=== PATIENT | male | born 1995 | race Caucasian/White ===

== ENCOUNTER 2020-08-03 14:37 | Outpatient (REF) | payer OTHER, SELFPAY | END 2020-08-03 14:38 | disposition home or self-care (01) | LOC: HO.LAB 14:37 | PROVIDERS: Visit Provider Internal Medicine | DX: Z20.828 Contact with and (suspected) exposure to other viral communicable diseases (principal) | CPT/HCPCS: C9803; U0003 ==

== ENCOUNTER 2020-09-02 15:52 | Outpatient (REF) | payer BC, SELFPAY | END 2020-09-02 15:53 | disposition home or self-care (01) | LOC: HO.LAB 15:52 | PROVIDERS: Visit Provider Internal Medicine | DX: Z20.822 Contact with and (suspected) exposure to COVID-19 (principal) | CPT/HCPCS: 36415; C9803; U0003 ==

== ENCOUNTER 2020-09-09 16:34 | Outpatient (REF) | payer BC, SELFPAY | END 2020-09-09 16:35 | disposition home or self-care (01) | LOC: HO.LAB 16:34 | PROVIDERS: Visit Provider Internal Medicine | DX: Z20.822 Contact with and (suspected) exposure to COVID-19 (principal) | CPT/HCPCS: 36415; C9803; U0003; U0005 ==

== ENCOUNTER 2020-11-02 02:04 | Emergency (ER) | payer BC, SELFPAY ==
[2020-11-02 02:07] VITALS: BP 137/83; PULSE 70; RESP 15; TEMP 36.6; O2SAT 100; BMI 33.0
[2020-11-02] MEDS: Acetaminophen 325 MG TABLET 975 MG PO (02:48)
[2020-11-02] MEDS: Diphth,Pertus(ACell),Tet Adult 0.5 ML SYRINGE IM (02:48)
[2020-11-02] MEDS: Ketorolac Tromethamine 15 MG/ML VIAL IM (02:49)
[2020-11-02] MEDS: Lidocaine HCl 2%/Epi 1:100,000 20 ML VIAL INFILTRATI (02:49)
--- NOTE | 2020-11-02 03:02 | ED_ITS ---
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 yesterday and was unable to be seen until he [place]. He is unsure of his tetanus status Related Data Allergies Allergy/AdvReac Type Severity Reaction Status Date / Time No Known Allergies Allergy Unverified 11/02/20 02:07 [No Known Allergies*] Review of Systems Review of Systems: Pertinent positives and negatives as stated in HPI 10 point review of systems is otherwise negative. PMFSH Past Medical History Source: nursing notes reviewed Medical History Elbow fracture Social History Social History Smoking Status: Never smoker Use of substances other than those prescribed or required for medical reasons: No Advance Directives: No Advance Directives Information Provided: No Physical Exam Vital Signs: Vital Signs: Last Vital Signs Temp 97.9 F 11/02/20 02:07 Pulse 70 11/02/20 02:07 Resp 15 11/02/20 02:07 BP 137/83 11/02/20 02:07 Pulse Ox 100 11/02/20 02:07 Body Mass Index 33.0 VITAL SIGNS: Reviewed. GENERAL: Well developed, well nourished, in no acute distress. HEAD: Normocephalic/atraumatic EYES: PERRLA, EOMI LUNGS: Normal breath sounds. No adventitious sounds or accessory muscle use. SpO2<100> CARDIOVASCULAR: Regular rate and rhythm without noted murmurs ABDOMEN: Soft, non-tender, non-distended with bowel sounds. RIGHT LOWER EXTREMITY: Lacerations x2 with corresponding contusion but otherwise no deformity, neurovascularly intact distal NEUROLOGIC: Alert and oriented x 4. Course Course Course Narrative: This is a 25-year-old male with history and clinical presentation consistent with 2 lacerations to the anterior aspect of the right lower extremity and on irrigation and evaluation there noted to be relatively superficial. Although it is been over 6 hours since the injury due to the location and the appearance Steri-Strips are not an option. Patient received a Tdap at this visit and tolerated the repair of the 2 lacerations well. The wound was then dressed and patient was discharged home in stable condition. Procedures Laceration Laceration 1: Site: lower extremity Side (If applicable): right Size (cm): 2.5 Description: linear Depth: simple, single layer Local Anesthetic: lidocaine 2% and with epi Amount of anesthesia used (mL): 2 Pre-repair: wound explored, irrigated extensively and deep structures intact Skin layer closed with: nylon Size (cm): 3-0 Number of sutures: 1 Technique: horizontal mattress Laceration 2: Site: lower extremity Side (If applicable): right Size (cm): 3 Description: linear Depth: simple, single layer Local Anesthetic: lidocaine 2% and with epi Amount of anesthesia used (mL): 3 Pre-repair: wound explored, irrigated extensively and deep structures intact Skin layer closed with: nylon Size (cm): 3-0 Number of sutures: 2 Technique: horizontal mattress Discharge Plan Discharge Clinical Impression: Laceration Patient Disposition: Home, Self-Care Instructions: Care For Your Stitches (ED), Laceration (ED) Additional Instructions: 1. Tylenol 1000 mg, orally, every 6 hours as needed for pain control. Do not exceed 4000 mg within 24 hours. 2. Ibuprofen 400 mg, orally with milk or food, every 6 hours as needed for pain control. Recommend taking this along with Tylenol for improved pain control. 3. May remove dressing this morning and gently cleanse the area with soap and water, blot dry, reapply antibiotic ointment (avoid Neosporin), and placed Band- Aid over top. 4. Please follow-up with your primary care provider in 7-10 days for suture removal. Should you develop any fevers, chills, purulence drainage from either wound or excessive redness/swelling please return to the emergency department for re- evaluation. Referrals: Rahul Munoz DO [Primary Care Provider] - 2 days (Re-evaluation outpatient management of laceration to right anterior lower leg. Patient received Tdap. Sutures need to be removed in 7-10 days.)
== END 2020-11-02 03:24 | disposition home or self-care (01) ==
PROVIDERS: Emergency Provider Student in an Organized Health Care Education/Training Program; PCP Family Medicine Adult Medicine
DX: S81.811A Laceration without foreign body, right lower leg, initial encounter (principal); W45.8XXA Other foreign body or object entering through skin, initial encounter; Y93.89 Activity, other specified; Y92.812 Truck as the place of occurrence of the external cause; Y99.9 Unspecified external cause status
CPT/HCPCS: 12032; 90471; 90715; 96372; 99284; J1885

== ENCOUNTER 2021-10-14 21:41 | Emergency (ER) | payer OTHER, MEDICAID, SELFPAY ==
--- NOTE | ~2021-10-14 | XR_ITS ---
EXAMINATION: RIGHT ANKLE, RIGHT FOOT CLINICAL INFORMATION: Ankle and foot pain status post injury COMPARISON: None TECHNIQUE: 2 views ankle, 3 views foot FINDINGS: No significant bone, joint or soft tissue abnormality is seen. XR/XR foot RT 2V IMPRESSION: No evidence of a traumatic osseous injury.
--- NOTE | ~2021-10-14 | XR_ITS ---
EXAMINATION: RIGHT ANKLE, RIGHT FOOT CLINICAL INFORMATION: Ankle and foot pain status post injury COMPARISON: None TECHNIQUE: 2 views ankle, 3 views foot FINDINGS: No significant bone, joint or soft tissue abnormality is seen. XR/XR ankle RT min 3V IMPRESSION: No evidence of a traumatic osseous injury.
[2021-10-14 21:48] VITALS: BP 134/83; PULSE 109; RESP 16; TEMP 36.7; O2SAT 98; BMI 33.5
--- NOTE | 2021-10-14 22:21 | ED.LOWEXIN ---
HPI - Extremity Injury (Lower) General Chief Complaint: Extremity Injury, Lower Stated Complaint: right ankle injury Time Seen by Provider: 10/14/21 22:21 Source: patient Mode of arrival: ambulatory Limitations: no limitations History of Present Illness HPI Narrative: 26-year-old male no significant medical history presents to the emergency department with complaints of right-sided ankle pain status post work related injury x2 today. Patient tells me he was working today slipped on ice, rolled his ankle while he slipped. His ankle immediately started hurting and he tells me it appears to be slightly swollen. When he fell he did not hit his head or lose consciousness. 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 Patient tells me he is able to feel all toes and feet. He tells me he is having pain to his ankle, not toe or foot. He denies numbness, tingling. When patient came in he was limping and using a crutch. MD complaint: ankle injury and fall Onset (ago): day(s) (1) Type of Injury: hyperflexion Place: work Severity: severe Relieving factors: nothing Exacerbating factors: movement Context: fall Associated symptoms: swelling Other symptoms: none Related Data Allergies Allergy/AdvReac Type Severity Reaction Status Date / Time No Known Allergies Allergy Unverified 11/02/20 02:07 [No Known Allergies*] Review of Systems Review of Systems: Constitutional : No Weight loss, No Fever, No Chills, No Fatigue, No Malaise ENT/Mouth : No sore throat, No Rhinorrhea Eyes: No Eye Pain, No Swelling, No Redness Cardiovascular : No Chest Pain, No SOB, No Dyspnea on Exertion, No Orthopnea, No Edema, No Palpitations Respiratory : No Cough, No Sputum, No Wheezing Gastrointestinal : No Nausea, No Vomiting, No Diarrhea, No Constipation, No abdominal Pain, No Hematochezia, No Melena Genitourinary : No Dysuria, No Urinary Frequency, No Hematuria, Musculoskeletal : + joint pain, No Myalgias, + Joint Swelling Skin : No Skin Lesions, No rash Neuro : No Weakness, No Numbness, No Dizziness, No Headache Psych : No Anxiety/Panic, No Depression All other systems reviewed and are negative Yes all other systems are reviewed and are negative [facility] [place] Past Medical History Attestation statement: The following information was validated with the patient. Source: old records reviewed and nursing notes reviewed Medical History Elbow fracture Social History Social History Advance Directives: No Physical Exam Vital Signs: Vital Signs: Last Vital Signs Temp 98.1 F 10/14/21 21:48 Pulse 109 H 10/14/21 21:48 Resp 16 10/14/21 21:48 BP 134/83 10/14/21 21:48 Pulse Ox 98 10/14/21 21:48 BMI result Body Mass Index 33.5 VSS Appearance: Alert.? Oriented X3.? No acute distress.? Head: Normocephalic, atraumatic, no step-offs or deformities Eyes: Pupils equal, round and reactive to light.? ENT: Pharynx normal.? Neck: Normal inspection.? Neck supple.? CVS: Normal heart rate and rhythm.? Pulses normal.? Respiratory: No respiratory distress.? Breath sounds normal.? Abdomen: Soft and nontender.? Skin: Skin warm and dry.? Normal skin color.? Normal skin turgor.? Extremities: No lower extremity edema.? No calf ttp. 5/5 strength to bilateral upper and lower extremities bilateral posterior tib and dorsalis pedis pulses 2+ equal bilateral. + swollen right ankle when compared to left. Sensory and motor intact to bilateral lower extremities. Pain with range of motion to right ankle however full range of motion. Left ankle normal. No overlying skin changes, no ecchymosis. Capillary refill less than 2nd on bilateral upper and lower extremities. Back: No midline tenderness, no C-spine tenderness, full range of motion, no CVA tenderness bilaterally Neuro: Oriented X 3.? No motor deficit.? No sensory deficit. CN 2-12 intact Course Reevaluation(s) Reevaluation #1: Patient will be placed in an air cast and given crutches. He will be given Toradol for pain/inflammation. Time: 22:28 Reevaluation #2: X-ray of right ankle with no evidence of traumatic osseous injury. X-ray of right within normal limits. At this time patient will be placed in an Aircast, advised her to rest ice, compress and elevate. Advised him to use crutches. He can alternate ibuprofen every 6, Tylenol every 4. Comfortable discharge home with PCP and Ortho follow-up if needed. MDM - Extremity Injury (Lower) MDM Narrative Medical decision making narrative: 2220 26 yo m presents with a right-sided ankle injury status post slip and fall and status post hyper flexing his right ankle today at work. Reports pain and swelling to the area. No numbness or tingling. Physical examination significant fo r5/5 strength to bilateral upper and lower extremities bilateral posterior tib and dorsalis pedis pulses 2+ equal bilateral. + swollen right ankle when compared to left. Sensory and motor intact to bilateral lower extremities. Pain with range of motion to right ankle however full range of motion. Left ankle normal. No overlying skin changes, no ecchymosis. Capillary refill less than 2nd on bilateral upper and lower extremities. No evident ligament or tendon involvement. No footdrop bilaterally. Plan at this time is to obtain imaging. Medical Records Attestation: I reviewed the patient's medical records. Lab Data Attestation: I reviewed the patient's lab results. Critical Care Time Critical Care Time Critical Care Time: No Discharge Plan Discharge Clinical Impression: Ankle sprain and strain, Work related injury Patient Disposition: Home, Self-Care Instructions: Ankle Sprain (DC), Crutch Instructions (ED), R.I.C.E. Treatment (ED) Additional Instructions: Take your medications as prescribed. If you were prescribed antibiotics today, it is important that you take your medication to their entirety, do not skip any doses, do not finish them early. Follow-up with your primary care provider this week. Follow-up with ortho if symptoms do not improve within a week or 2. Return to the emergency department with new or worsening symptoms. Such as fevers, chills, chest pain, shortness of breath, nausea, vomiting, dizziness, headache, vision changes, lethargy, numbness or tingling In case of emergency call 911 Do not sleep with the Aircast. Can take ibuprofen every 6 hours, Tylenol every 4. Referrals: Adan Hines MD [Physician] - 2 days Physician,Kelsey [Primary Care Provider] - 2 days Stand Alone Forms: Work/School Release
[2021-10-14] MEDS: Ketorolac Tromethamine 30 MG/ML VIAL IM (22:49)
== END 2021-10-14 23:37 | disposition home or self-care (01) ==
PROVIDERS: Emergency Provider Emergency Medicine Emergency Medical Services
DX: S93.401A Sprain of unspecified ligament of right ankle, initial encounter (principal); S96.911A Strain of unspecified muscle and tendon at ankle and foot level, right foot, initial encounter; W00.0XXA Fall on same level due to ice and snow, initial encounter; Y93.9 Activity, unspecified; Y92.9 Unspecified place or not applicable; Y99.0 Civilian activity done for income or pay
CPT/HCPCS: 73610; 73620; 96372; 99284; J1885

== ENCOUNTER 2022-01-06 21:15 | Emergency (ER) | payer MEDICAID, SELFPAY ==
[2022-01-06 21:40] VITALS: BP 142/81; PULSE 86; RESP 14; TEMP 36.7; O2SAT 98; BMI 33.5
--- NOTE | 2022-01-07 01:59 | ED_ITS ---
HPI - Animal Bite General Chief Complaint: Animal Bite Stated Complaint: nose lac Time Seen by Provider: 01/07/22 01:57 Source: patient Mode of arrival: ambulatory Limitations: no limitations History of Present Illness HPI narrative: 26-year-old male came in for evaluation after been bitten by his own dog. Patient stated that his dog has cancer and noticed that the dog's hip is dislocated, patient was trying to reduce the dog's hip closed pain to the dog and bit the patient in his left nostril causing bleeding. The dog is in door, has been behaving normally, with no suspicion of rabies infection. Related Data Allergies Allergy/AdvReac Type Severity Reaction Status Date / Time No Known Allergies Allergy Unverified 11/02/20 02:07 [No Known Allergies*] Review of Systems Review of Systems: All other systems are reviewed and are negative Constitutional: Reports as per HPI and Reports no additional constitutional complaints Eyes: Reports as per HPI and Reports no additional eye complaints Reports system reviewed and no additional complaints, except as documented Cardiovascular: Reports as per HPI and Reports no additional cardiovascular complaints Respiratory: Reports as per HPI and Reports no additional respiratory complaints Gastrointestinal: Reports as per HPI and Reports no additional gastrointestinal complaints Genitourinary: Reports no additional female genitourinary complaints Musculoskeletal: Reports no additional musculoskeletal complaints Skin/Breast: Reports system reviewed and no additional complaints, except as docu Psychiatric: Reports no additional psychiatric complaints Endocrine: Reports no additional endocrine complaints Hematologic/Lymphatic: Reports no additional hematologic/lymphatic complaints Allergic/Immunologic: Reports no additional allergic/immunologic complaints Reports system reviewed and no additional complaints, except as documented and Reports Abnormal speech present [facility] Past Medical History Medical History Elbow fracture Social History Social History Advance Directives: No Physical Exam ED Vital Signs: Vital Signs - 24 hr 01/06/22 21:40 Temperature 98.0 F Pulse Rate 86 Respiratory Rate 14 Blood Pressure 142/81 H Pulse Oximetry 98 BMI result Body Mass Index 33.5 Vital signs have been reviewed as appeared to be correct. Blood pressure nor mal. Heart rate normal. Respiration rate normal. Temperature normal. Oxygen saturation normal. Appearance: Alert. Oriented X3. No acute distress. Head: Normal external exam. Normocephalic. Atraumatic. No Tolentino signs noted. No raccoon eyes noted Eyes: PERRLA. EOMI. Conjunctiva and sclera normal. Eyelids normal. ENT: TM's Normal. Pharynx normal. Uvula midline. Moist mucous membranes. Dry blood in the lateral wall of left nostril, no active bleeding, trismus noted. No drooling noted. No muffled voice noted. Neck: Normal inspection. Neck supple. FROM. No adenopathy. Thyroid Normal. No meningeal signs. No neck mass noted. CVS: Normal heart rate and rhythm. Heart sound normal. No murmurs noted. Pulses normal throughout. Respiratory: No respiratory distress. Painless inspiration. Breath sounds normal. No wheezes/rales/rhonchi noted. Chest nontender. No accessory muscle usage noted or decreased air movement noted. Abdomen: Soft and nontender. Bowel sounds normal in all 4 quadrants. No distention noted. No organomegaly noted. No visible injury noted. Back: No CVA tenderness. Full range of motion noted. Skin: Skin warm and dry. Normal skin color. Normal skin turgor. No rashes/lesions/lacerations noted. Extremities: No lower extremity edema. Extremities exhibit normal range of motion. Extremities nontender. Neuro: Oriented X 3. Cranial nerve exam: II-XII are grossly intact No motor deficit. No sensory deficit. Reflexes normal. Course Course Course Narrative: Assessment and plan. 26-year-old male came in for evaluation after been bitten by his own dog, the dog is not up-to-date on his vaccination, but the patient confirmed that the dog has been behaving normally, the pain was provoked by trying to reduce a dislocated hip of the dog, need no laceration repair, patient will require Augmentin, patient will be able to watch the dog for the next 10 days and reported if any behavior change. Discharge Plan Discharge Clinical Impression: Dog bite Patient Disposition: Home, Self-Care Instructions: Animal Bite (ED) Additional Instructions: Please report to animal control of your City, monitor your dog for the next 10 days if any change in his behavior return to the ED to consider rabies shot. Referrals: Physician,None [Primary Care Provider] -
[2022-01-07] MEDS: Amoxicillin/Potassium Clav 875 MG TABLET PO (02:02)
[2022-01-07 02:09] VITALS: BP 132/67; PULSE 70; RESP 18; TEMP 36.8; O2SAT 98
== END 2022-01-07 02:10 | disposition home or self-care (01) ==
PROVIDERS: Emergency Provider Emergency Medicine
DX: S01.25XA Open bite of nose, initial encounter (principal); W54.0XXA Bitten by dog, initial encounter; Y93.9 Activity, unspecified; Y92.009 Unspecified place in unspecified non-institutional (private) residence as the place of occurrence of the external cause; Y99.9 Unspecified external cause status
CPT/HCPCS: 99281; 99283

== ENCOUNTER 2022-01-19 20:28 | Emergency (ER) | payer MEDICAID, SELFPAY ==
--- NOTE | ~2022-01-19 | XR_ITS ---
EXAMINATION: XR HAND, LEFT CLINICAL INFORMATION: Exams for obvious deformity COMPARISON: Left hand 02/09/2018 TECHNIQUE: PA, lateral, and oblique views of the left hand. FINDINGS: There is subluxation at the metacarpal phalangeal joint of the fifth digit with dorsal displacement without tyra dislocation. no bony fractures are seen. The remainder of the hand is unremarkable. XR/XR hand LT min 3V IMPRESSION: Subluxation left fifth metacarpal phalangeal joint.
--- NOTE | ~2022-01-19 | XR_ITS ---
EXAMINATION: XR HAND, LEFT CLINICAL INFORMATION: Postreduction COMPARISON: Left hand radiographs 01/19/2022 TECHNIQUE: PA, lateral, and oblique views of the left hand. FINDINGS: There appears to be successful reduction of the fifth carpometacarpal joint dislocation. Fracture fragment interposed between the bases of the fourth and fifth metacarpals again noted. No new fracture or current dislocation. Mild irregular contour deformity of the fourth distal metacarpal compatible with remote healed injury. Joint spaces appear maintained. Marked soft tissue swelling overlying the dorsal hand redemonstrated. Cast/splint material overlies the ulnar aspect of the hand and wrist. XR/XR hand LT 2V IMPRESSION: 1. Successful reduction of the previously seen fifth carpometacarpal joint dislocation. 2. Mildly displaced bone/fracture fragment interposed between the bases of the fourth and fifth metacarpals redemonstrated. 3. Marked masslike soft tissue swelling along the dorsal hand.
[2022-01-19 20:32] VITALS: BP 98/67; PULSE 98; RESP 18; TEMP 37; O2SAT 100; BMI 33.2
--- NOTE | 2022-01-19 22:58 | ED.EXTPRO ---
HPI - Extremity Problem General Chief complaint: Extremity Injury, Upper Stated complaint: left hand swollen punched an object?? Time Seen by Provider: 01/19/22 22:13 Source: patient Mode of arrival: ambulatory Limitations: no limitations History of Present Illness HPI Narrative: 26-year-old male left-hand dominant here with left hand pain and swelling after punching a wooden door frame earlier today. Patient tells me he is up-to-date on his tetanus shot. No weakness, numbness, tingling, warmth, redness or fever Related Data Previous Rx's Medication Instructions Recorded amoxicillin 500 mg-potassium 1 tab PO BID #14 tabs 01/07/22 clavulanate 125 mg tablet (Augmentin) Allergies Allergy/AdvReac Type Severity Reaction Status Date / Time No Known Allergies Allergy Unverified 11/02/20 02:07 [No Known Allergies*] Review of Systems Review of Systems: Yes all other systems are reviewed and are negative Constitutional: Constitutional: Reports no additional constitutional complaints, Denies body ache(s), Denies chills, Denies fever(s), Denies headache(s) and Denies weakness Eyes: Eyes: Reports no additional eye complaints and Denies change in vision ENT: Reports system reviewed and no additional complaints, except as documented, Denies dizziness, Denies headache(s), Denies nasal congestion, Denies nasal discharge and Denies neck pain Cardiovascular: Cardiovascular: Reports no additional cardiovascular complaints, Denies chest pain, Denies leg edema and Denies dyspnea Respiratory: Respiratory: Reports no additional respiratory complaints, Denies cough and Denies dyspnea Gastrointestinal: Gastrointestinal: Reports no additional gastrointestinal complaints, Denies abdominal pain, Denies diarrhea, Denies nausea and Denies vomiting Genitourinary: Genitourinary: Denies urinary incontinence Musculoskeletal: Musculoskeletal: Reports no additional musculoskeletal complaints, Denies back pain, Reports arthralgias, Reports joint swelling, Denies neck pain, Denies numbness and Denies tingling Integumentary/Breasts: Skin/Breast: Reports system reviewed and no additional complaints, except as docu and Denies rash Neurologic: Reports system reviewed and no additional complaints, except as documented, Denies Abnormal speech present, Denies dizziness, Denies headache(s), Denies numbness, Denies tingling and Denies weakness [facility] Past Medical History Attestation statement: The following information was validated with the patient. Source: old records reviewed and nursing notes reviewed Medical History Elbow fracture Social History Social History Advance Directives: No Advance Directives Information Provided: No Physical Exam Vital Signs: Vital Signs: Last Vital Signs Temp 98.6 F 01/19/22 20:32 Pulse 98 01/19/22 20:32 Resp 18 01/19/22 20:32 BP 98/67 01/19/22 20:32 Pulse Ox 100 01/19/22 20:32 O2 Del Method 01/19/22 20:32 BMI result Body Mass Index 33.2 Const: General: cooperative, healthy appearing, comfortable and no acute distress Orientation/consciousness: patient oriented x3 Limitations: no limitations HEENT: Head: Yes normal to inspection Ears: hearing grossly normal bilaterally General nose exam: Normal external nose present Face and sinus: Yes normal facial exam Mouth: Normal oral and palatal mucosa present Throat: Yes posterior oropharynx normal Eyes: General: appearance normal, both eyes and all related structures Pupils: Equal, round and reactive pupils present Neck: Neck: Yes normal visual inspection Chest: Chest palpation & inspection: normal inspection of the chest Resp: Effort & Inspection: normal respiratory effort Auscultation: clear to auscultation bilaterally Cardio: Rate: regular rate Rhythm: regular rhythm Peripheral pulses: Peripheral pulses 2+ throughout GI: Inspection: Yes normal to inspection Palpation (GI): Soft to palpation and nontender Auscultation: normal bowel sounds Back/Spine/Pelvis: Thoracic/Lumbar Spine: thoracic and lumbar spine normal to inspection Skin: General skin exam: no rashes or lesions noted Neuro: General: patient oriented x3, no focal motor deficits and normal sensation to monofilament Cranial nerves: Yes Equal, round and reactive pupils present Cognition (Neuro): normal cognition Speech: No Abnormal speech present Gait exam (Neuro): Normal gait present Motor exam (neuro): 5/5 motor strength present throughout Extrem: Other: there are abrasions over the left hand over the 1st and 2nd metacarpal. There is a deformity over the left 5th metacarpal with ecchymosis and swelling. Flexion and extension of the digits is normal. Range of motion of the hand is limited due to pain. Neurovascular intact distally to the injury. General: Yes normal to inspection Course Course Course Narrative: 26-year-old male left-hand dominant here with left hand pain, swelling and deformity after punching an object prior to arrival. X-rays from triage show subluxation of the left 5th metacarpal phalangeal joint. a reduction was done at the bedside by Dr. Hernandez. patient placed in ulnar gutter splint and given a sling. Recommend follow-up with orthopedics outpatient. Post reduction films show successful reduction of the 5th metacarpal joint. There is my mildly displaced bone fragments between the bases of the 4th and 5th metacarpals. patient was informed of this. reviewed rice. Reviewed worrisome signs and symptoms of when to return to the emergency department. Comfortable discharge home. MDM - Extremity (Nontraumatic) Medical Records Attestation: I reviewed the patient's medical records. Lab Data Attestation: I reviewed the patient's lab results. Imaging Data hand x-ray: Attestation: I personally reviewed and interpreted this imaging study as follows: Radiologist's impression: EXAMINATION: XR HAND, LEFT CLINICAL INFORMATION: Exams for obvious deformity? COMPARISON: Left hand 02/09/2018? TECHNIQUE: PA, lateral, and oblique views of the left hand. FINDINGS: There is subluxation at the metacarpal phalangeal joint of the fifth digit with dorsal displacement without tyra dislocation. no bony fractures are seen. The remainder of the hand is unremarkable. XR/XR hand LT min 3V IMPRESSION: Subluxation left fifth metacarpal phalangeal joint. hand xry: Attestation: I personally reviewed and interpreted this imaging study as follows: Radiologist's impression: FINDINGS: There appears to be successful reduction of the fifth carpometacarpal joint dislocation. Fracture fragment interposed between the bases of the fourth and fifth metacarpals again noted. No new fracture or current dislocation. Mild irregular contour deformity of the fourth distal metacarpal compatible with remote healed injury. Joint spaces appear maintained. Marked soft tissue swelling overlying the dorsal hand redemonstrated. Cast/splint material overlies the ulnar aspect of the hand and wrist.? XR/XR hand LT 2V IMPRESSION: 1.? Successful reduction of the previously seen fifth carpometacarpal joint dislocation. 2.? Mildly displaced bone/fracture fragment interposed between the bases of the fourth and fifth metacarpals redemonstrated. 3.? Marked masslike soft tissue swelling along the dorsal hand. Procedures Orthopedic Joint Reduction Joint #1: Time Out Performed: Yes Side: left Joint Reduction Location: finger Analgesia: none Technique used: traction/counter-traction Post-reduction neuro exam: intact Post-reduction vascular: intact Post Reduction X-Ray Obtained: Yes Post Reduction X-Ray Results: reduced Splint Applied: Yes Patient Tolerated Procedure: well Orthopedic Splinting/Casting Injury #1: Side: left Upper Extremity Injury Location: finger Upper Extremity Immobilizer: ulnar gutter Discharge Plan Discharge Clinical Impression: Dislocation of finger, Finger fracture, left Patient Disposition: Home, Self-Care Instructions: Finger Fracture (ED), Finger Dislocation (ED) Additional Instructions: Splint must stay on at all times Do not get wet Elevate and use the sling for comfort Follow-up with orthopedics Limit use of the hand Motrin for pain as needed Prescriptions: No Action amoxicillin-pot clavulanate [Augmentin] 500-125 mg tablet 1 tab PO BID Qty: 14 0RF Referrals: [facility] [place] [facility] [Provider Group] - 5 days Stand Alone Forms: Work/School Release Interventions: ED Discharge Assessment Last Done: 01/19/22 22:59 Discharge Date/Time: 01/19/22 23:01
== END 2022-01-19 23:01 | disposition home or self-care (01) ==
PROVIDERS: Emergency Provider Internal Medicine
DX: S63.267A Dislocation of metacarpophalangeal joint of left little finger, initial encounter (principal); S62.309A Unspecified fracture of unspecified metacarpal bone, initial encounter for closed fracture; W22.09XA Striking against other stationary object, initial encounter; Y93.9 Activity, unspecified; Y92.9 Unspecified place or not applicable; Y99.9 Unspecified external cause status
CPT/HCPCS: 26700; 73120; 73130; 99282; 99283

== ENCOUNTER → 2022-01-24 11:39 | Outpatient (BNVA) | payer MEDICAID, SELFPAY | PROVIDERS: Visit Provider Orthopaedic Surgery | DX: S62.315A Displaced fracture of base of fourth metacarpal bone, left hand, initial encounter for closed fracture (principal); S63.055A Dislocation of other carpometacarpal joint of left hand, initial encounter | CPT/HCPCS: 99202 ==

== ENCOUNTER 2022-01-27 06:34 | Day surgery (SDC) | payer MEDICAID, SELFPAY ==
--- NOTE | 2022-01-26 09:20 | HO.ANESPROP2 ---
Documented by User: Reshma Akins NP 01/26/22 09:20 HPI - Anesthesia Eval Consult details Narrative: 26yo M for Left fifth Finger Carpal Metacarpal Fx, CRPP vs ORIF [facility] Active Problems Active Problems: All Active Problems (Updated 01/24/22 @ 12:43 by Paulina Lawrence MD) Closed dislocation of fifth carpometacarpal joint of left hand (Acute) Fracture of base of fourth metacarpal bone of left hand (Acute) Past Medical History Medical History Elbow fracture Social History Social History (Updated 01/24/22 @ 12:09 by RAFAEL Doty) Patient Tobacco Use Status: Never used Tobacco Use of substances other than those prescribed or required for medical reasons: Yes Substance Use Frequency: Occasionally Are you DNR?: No Advance Directives: No Advance Directives Information Provided: Yes Current occupational status: employed 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 Meds Allergies Allergy/AdvReac Type Severity Reaction Status Date / Time No Known Allergies Allergy Unverified 01/24/22 12:07 [No Known Allergies*] Exam Exam Date and Time: January 26, 2022 0920 Assessment and Plan Assessment Anesthesia Assessment: Chart Reviewed Documented by User: Bigg Cummings MD 01/27/22 08:21 [facility] Past Medical History Medical History Elbow fracture Family History Family history of problems with anesthesia: No Surgical History History of Problems with Anesthesia: No Social History Social History (Updated 01/24/22 @ 12:09 by RAFAEL Doty) Patient Tobacco Use Status: Never used Tobacco Use of substances other than those prescribed or required for medical reasons: Yes Substance Use Frequency: Occasionally Are you DNR?: No Advance Directives: No Advance Directives Information Provided: Yes Current occupational status: employed 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 Meds Allergies Allergy/AdvReac Type Severity Reaction Status Date / Time No Known Allergies Allergy Unverified 01/24/22 12:07 [No Known Allergies*] Exam Airway Mallampati Class: II TM Dist: >3cm Neck ROM: Full Loose/Missing/Broken Teeth: No Assessment and Plan Assessment Anesthesia Assessment: Anesthesia Plan Discussed Final Anesthetic Review Family History of Problems with Anesthesia: No History of Problems with Anesthesia: No NPO: Yes ASA Class: II Final Preanesthetic Review: No Changes in Pt Med Stat, Meds/Allgs Chart Reviewed, Consent Obtained/Reviewed and Anes Risks/Benef Reviewed Patient Risk: Low Procedure Risk: Low Anesthetic Plan Anesthetic Plan: GA Disposition: Standard PACU
--- NOTE | ~2022-01-27 | FL_ITS ---
EXAMINATION: XR FLUOROSCOPY WITH IMAGES CLINICAL INFORMATION: Left fifth finger subluxation/fracture COMPARISON: January 19, 2022 TECHNIQUE: Fluoroscopy performed by Paulina Lawrence. Fluoroscopy time: 31.56 seconds DAP: 0.0594 Gycm2 Images: 3 FINDINGS: Portable intraoperative C-arm images demonstrate placement of 2 K wires for fracture/subluxation of the base of the fifth metacarpal. There is what appears to be anatomic alignment on the provided imaging. FL/FL guidance in OR IMPRESSION: Intraoperative fluoroscopy for orthopedic procedure.
[2022-01-27 06:39] VITALS: BMI 33.5
[2022-01-27] MEDS: Lactated Ringers 1,000 ML 100 ML IVCONT (07:01)
[2022-01-27 07:02] VITALS: BP 125/83; PULSE 73; RESP 16; TEMP 35.8; O2SAT 98
[2022-01-27 08:52] VITALS: BP 137/82; PULSE 72; RESP 16; TEMP 36.4; O2SAT 100
--- NOTE | 2022-01-27 08:56 | MHC.SHP ---
Pre-Procedural Eval Section A Date of Service: 01/27/22 The patient is an INPATIENT: No Changes since office visit: No Cold of Flu in the past 2 weeks, No New Medical Problems, No Changes in Medication and No Patient answered all questions The History & Physical has been completed within 30 days and I have reviewed it.: Yes Section B Chief Complaint: 5th cmc dislocation Allergies: Allergies Allergy/AdvReac Type Severity Reaction Status Date / Time No Known Allergies Allergy Unverified 01/24/22 12:07 [No Known Allergies*] Plan I have reviewed the history and physical and performed a pertinent physical examination on my patient. No changes have occurred unless specified.
[2022-01-27 08:57] VITALS: BP 141/89; PULSE 75; RESP 16; O2SAT 96
--- NOTE | 2022-01-27 08:59 | W.PM.OPN ---
Operative Note Operative Note Date of Service: 01/27/22 Narrative: Operative Note Narrative: Preop diagnosis: 1. Left 5th CMC joint fracture dislocation, dorsal Postop diagnosis: Same Procedure: 1. left 5th CMC joint closed reduction percutaneous pinning 2. Ulnar nerve block Surgeon: Paulina Lawrence MD Anesthesia: General Anesthesia Findings: Metacarpal fracture Implants: 0.062 K-wires times 2 Tourniquet time: None EBL: Minimal Specimen: None Drains: None Complications: None Disposition: Brought to the recovery room in stable condition Plan: Follow-up in 10-14 days for a wound check, postop radiographs and for placement in a short-arm cast Anticipate K-wire removal in 5-6 weeks Educate the patient that full healing anticipated in approximately 8-12 weeks. Indications: The patient is [age] years old with a left 5th CMC joint dorsal dislocation . The risks and benefits of operative treatment, including but not limited to risk of damage to blood vessels, nerves, tendons, infection, recurrence, delayed or nonunion of fracture, persistent pain or numbness, incomplete resolution of preoperative symptoms, or need for further surgery were discussed with the patient and they wished to proceed with surgery. Procedure: Once consent was obtained patient was brought back to the operating suite and placed in the operating table in a supine position. . Perioperative antibiotics and general anesthesia was administered by the anesthesia team. A tourniquet was applied to the proximal aspect of the left upper extremity and the limb was prepped and draped in a standard surgical fashion. Tourniquet was not inflated during the case. The FluoroScan was used during the case to assist with our fracture reduction and placement of all implants. I placed a 0.062 K-wire retrograde through the head of the 5th metacarpal extending proximally to the CMC joint. The CMC joint was then held in a reduced position and the K-wire was advanced retrograde across the 5th CMC joint and into the hamate. A 2nd 0.062 K-wire was placed transversely through the Base of the 5th metacarpal extending across the 4th and 3rd metacarpal bases.. They hand was assessed clinically and no malalignment was appreciated. Once satisfied with our fracture reduction and implant placement, the K-wires were bent and cut short and pin caps applied. Final fluoroscopic images were then obtained. The wounds were copiously irrigated with normal saline. An ulnar nerve block was then performed by infiltrating about the ulnar nerve at the wrist with some 1% lidocaine with epinephrine for postop pain control. A Sterile dressing and A dorsalsplint was applied. The patient appears to have tolerated the procedure well and with no complications. All digits were well vascularized at the conclusion of the case.
[2022-01-27 09:02] VITALS: BP 139/82; PULSE 75; RESP 18; O2SAT 97
[2022-01-27 09:07] VITALS: BP 137/82; PULSE 79; RESP 18; O2SAT 98
[2022-01-27 09:22] VITALS: BP 132/86; PULSE 73; RESP 12; TEMP 36.3; O2SAT 98
[2022-01-27] MEDS: Ketorolac Tromethamine 30 MG/ML VIAL IVPUSH (09:22)
== END 2022-01-27 10:00 | disposition home or self-care (01) ==
PROVIDERS: Visit Provider Orthopaedic Surgery
PROC: (CPT 26608; principal; 2022-01-27 07:30)
DX: S63.055A Dislocation of other carpometacarpal joint of left hand, initial encounter (principal); S62.315A Displaced fracture of base of fourth metacarpal bone, left hand, initial encounter for closed fracture; W22.09XA Striking against other stationary object, initial encounter; Y93.89 Activity, other specified; Y92.89 Other specified places as the place of occurrence of the external cause; Y99.8 Other external cause status
CPT/HCPCS: 26608; J0690; J1100; J1885; J2250; J2405; J3010

== ENCOUNTER 2022-02-09 07:59 | Outpatient (REF) | payer MEDICAID, SELFPAY ==
--- NOTE | ~2022-02-09 | XR_ITS ---
EXAMINATION: XR HAND, LEFT CLINICAL INFORMATION: Pain. Fracture. COMPARISON: None TECHNIQUE: PA, lateral, and oblique views of the left hand. FINDINGS: There are K wires across the base of the fourth and fifth metacarpal bones and fifth PENITENTIARY joint that appears unchanged. There is a fracture fragment in between the base of the fourth and fifth metacarpal bones.. There is overlying soft tissue swelling. XR/XR hand LT min 3V IMPRESSION: Stable position orthopedic hardware and fracture fragment in between the base of the fourth and fifth metacarpal bones.
== END 2022-02-09 08:00 | disposition home or self-care (01) ==
LOC: HO.HOSX 07:59
PROVIDERS: Visit Provider Orthopaedic Surgery
DX: M79.642 Pain in left hand (principal)
CPT/HCPCS: 73130

== ENCOUNTER 2022-03-02 07:29 | Outpatient (REF) | payer MEDICAID, SELFPAY ==
--- NOTE | ~2022-03-02 | XR_ITS ---
EXAMINATION: XR HAND, LEFT CLINICAL INFORMATION: Pain. Follow-up fracture COMPARISON: Left hand 02/09/2022 TECHNIQUE: PA, lateral, and oblique views of the left hand. FINDINGS: There is a K wire traversing the entire length of fifth metacarpal and a horizontal K wire through the base of fourth and fifth metacarpals stabilizing proximal fifth metacarpal fracture. The fraction between the base of fourth and fifth metacarpal are stable compared to last exam. XR/XR hand LT min 3V IMPRESSION: Stabilized fracture base of fourth and fifth with orthopedic hardware. No change from previous exam.
== END 2022-03-02 07:30 | disposition home or self-care (01) ==
LOC: HO.HOSX 07:29
PROVIDERS: Visit Provider Physician Assistant
DX: S62.315D Displaced fracture of base of fourth metacarpal bone, left hand, subsequent encounter for fracture with routine healing (principal); S63.055D Dislocation of other carpometacarpal joint of left hand, subsequent encounter
CPT/HCPCS: 29085; 73130

== ENCOUNTER 2022-03-17 07:53 | Outpatient (REF) | payer MEDICAID, SELFPAY ==
--- NOTE | ~2022-03-17 | XR_ITS ---
EXAMINATION: XR HAND, LEFT CLINICAL INFORMATION: Pain COMPARISON: 01/19/2022 and 03/02/2022 TECHNIQUE: PA, lateral, and oblique views of the left hand. FINDINGS: Compared to 03/02/2022, interval removal of the Bernard wire through the fifth metacarpal. A residual Bernard wire projects over the bases of the 3rd - 5th metacarpals. There is an anatomic postoperative reduction along the carpometacarpal joints. A small, previously displaced ossific fragment projects between the bases of the 4th and 5th metacarpals. There appears to be fracture healing, and there is osteopenia of disuse involving the ulnar-sided bones. XR/XR hand LT min 3V IMPRESSION: Again noted is the anatomic reduction at the 4th and 5th carpometacarpal joints with Bernard wire in place.
== END 2022-03-17 07:54 | disposition home or self-care (01) ==
LOC: HO.HOSX 07:53
PROVIDERS: Visit Provider Physician Assistant
DX: M79.642 Pain in left hand (principal)
CPT/HCPCS: 73130

== ENCOUNTER 2022-06-03 22:57 | Emergency (ER) | payer MEDICAID, SELFPAY ==
--- NOTE | ~2022-06-03 | XR_ITS ---
EXAMINATION: XR ANKLE, LEFT CLINICAL INFORMATION: Pain COMPARISON: None TECHNIQUE: AP, lateral, and mortise views of the left ankle. FINDINGS: No fracture or dislocation. The ankle mortise is congruent. No ankle joint effusion. The soft tissues are unremarkable. XR/XR ankle LT 2V IMPRESSION: Normal left ankle.
[2022-06-03 23:22] VITALS: BP 146/86; PULSE 88; RESP 17; TEMP 37.2; O2SAT 98; BMI 33.9
[2022-06-03] MEDS: Acetaminophen 325 MG TABLET 975 MG PO (23:24)
--- NOTE | 2022-06-04 00:03 | ED_ITS ---
HPI - Extremity Injury (Lower) General Chief Complaint: Extremity Injury, Lower Stated Complaint: LEFT ANKLE PAIN Time Seen by Provider: 06/03/22 23:50 Source: patient Mode of arrival: wheelchair Limitations: no limitations History of Present Illness HPI Narrative: 26-year-old male presents with injury to the left ankle, after jumping off of some steps and landing into a pothole. Patient is able to ambulate with a limp. Patient does not report any other injury. MD complaint: ankle injury Onset (ago): hour(s) (Within the hour arrival) Type of Injury: inversion Place: street/outdoors Severity: moderate Severity scale (1-10): 5 Relieving factors: cold therapy, immobilization and rest Exacerbating factors: weight bearing, movement and palpation Context: jumping Associated symptoms: snap/pop sensation and able to partially bear weight Other symptoms: none Treatments prior to arrival: cold therapy Related Data Allergies Allergy/AdvReac Type Severity Reaction Status Date / Time No Known Allergies Allergy Verified 03/17/22 12:54 [No Known Allergies*] Review of Systems Review of Systems: Constitutional: No Fever, No Chills ENT/Mouth: No Ear Pain, No Hoarseness, No sore throat Eyes: No Eye Pain, No Swelling, No Redness, No Foreign Body Cardiovascular: No Chest Pain, No SOB Respiratory: No Cough, No Dyspnea Gastrointestinal: No Nausea, No Vomiting, No Diarrhea, No abdominal Pain Genitourinary: No Dysuria, No Hematuria Musculoskeletal: positive left ankle pain, No Myalgias, No Joint Swelling Skin: No Skin lacerations, No rash Neuro: No Weakness, No Numbness, No Paresthesias, No Loss of Consciousness, No Dizziness, No Headache Psych: No Anxiety/Panic, No Depression Heme/Lymph: no easy bruising, no Lymphadenopathy Endocrine: No Polyuria, No Polydipsia Yes all other systems are reviewed and are negative [facility] Past Medical History Attestation statement: The following information was validated with the patient. 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 Oriented X3. No acute distress. Eyes: Pupils equal, round and reactive to light. ENT: Pharynx normal. Neck: Normal inspection. Neck supple. CVS: Normal heart rate and rhythm. Pulses normal. Respiratory: No respiratory distress. Breath sounds normal. Abdomen: Soft and nontender. Skin: Skin warm and dry. Normal skin color. Normal skin turgor. Extremities: Decreased flexion extension internal external rotation to the left ankle. Tenderness to the lateral malleolar process with bruising. Physical exam consistent with sprain. Brisk capillary refill unequal pulses Neuro: No motor deficit. No sensory deficit. Cranial nerves 2-12 intact Course Course Course Narrative: 26-year-old male presents for evaluation for left ankle injury, stated that he jumped into a pothole on accident and twisted his ankle. He is able to ambulate but is ambulating with a limp. He does not report any other injuries at this time. He has decreased flexion and extension, secondary to pain, no indication of tendon laxity or deficit. He does have tenderness to the malleolar process lateral with some bruising. X-rays are negative for acute findings requiring emergent intervention. Patient states that he is having a difficult time ambulating, will give crutches, and Toradol IM. Patient verbalized understanding of and agrees to plan of care discharge home. Verbalized understanding of signs and symptoms indicating need for emergent intervention MDM - Extremity Injury (Lower) Differential Diagnosis Differential diagnosis: Likely ankle sprain and strain Medical Records Attestation: I reviewed the patient's medical records. Imaging Data Left ankle x-ray: Attestation: I personally reviewed and interpreted this imaging study as follows: Radiologist's impression: EXAMINATION: XR ANKLE, LEFT CLINICAL INFORMATION: Pain? COMPARISON: None? TECHNIQUE: AP, lateral, and mortise views of the left ankle. FINDINGS: No fracture or dislocation. The ankle mortise is congruent. No ankle joint effusion. The soft tissues are unremarkable.? XR/XR ankle LT 2V IMPRESSION: Normal left ankle. ? Discharge Plan Discharge Clinical Impression: Ankle sprain and strain Patient Disposition: Home, Self-Care Instructions: Ankle Sprain (ED), R.I.C.E. Treatment (ED), Crutch Instructions (ED) Additional Instructions: You were evaluated for left ankle pain. X-rays are negative for fracture dislocation. Your injuries are consistent with a sprain. Use crutches as needed for ambulation. Rest ice and elevate. Use Motrin 600 mg every 6 hours as needed for pain management. We gave you dose of Toradol at 01:30, you can take Motrin safely at 8 a.m. tomorrow morning. If symptoms persist follow up with primary care physician as you may need orthopedics referral. Thank you for choosing this emergency department for evaluation. Please follow-up with primary care physician as needed. Return to the emergency department for any new, concerning, or worsening symptoms. Referrals: Meme Molina PA-C [Physician Sports Leadership Instructor] - 2 weeks (as needed for prolonged ankle pain)
[2022-06-04 01:28] VITALS: BP 124/69; PULSE 82; RESP 15; TEMP 36.9; O2SAT 99
[2022-06-04] MEDS: Ketorolac Tromethamine 60 MG/2 ML VIAL IM (01:39)
== END 2022-06-04 01:44 | disposition home or self-care (01) ==
PROVIDERS: Emergency Provider Emergency Medicine Emergency Medical Services
DX: M25.572 Pain in left ankle and joints of left foot (principal)
CPT/HCPCS: 73600; 96372; 99284; J1885

== ENCOUNTER 2023-10-17 17:14 | Emergency (ER) | payer OTHER, MEDICAID, SELFPAY ==
[2023-10-17 18:38] VITALS: BP 120/77; PULSE 95; RESP 18; TEMP 38.3; O2SAT 97; BMI 33.1
--- NOTE | 2023-10-17 18:40 | ED_ITS ---
HPI - General Adult General Chief complaint: Upper Respiratory Symptoms Stated complaint: diarrhea fever cough congestion headache Time Seen by Provider: 10/17/23 20:32 Source: patient Mode of arrival: ambulatory Limitations: no limitations History of Present Illness HPI narrative: 28-year-old healthy male presents to ED for 1 week of URI symptoms and diarrhea. Patient states his daughter was positive with the flu and now he is symptomatic. Patient denies any chest pain or shortness of breath Related Data Allergies Allergy/AdvReac Type Severity Reaction Status Date / Time No Known Allergies Allergy Verified 03/17/22 12:54 [No Known Allergies*] Review of Systems Review of Systems: URI symptoms. 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 Physical Exam ED Vital Signs: Vital Signs - 24 hr 10/17/23 18:38 10/17/23 20:13 Temperature 100.9 F H 98.6 F Pulse Rate 95 80 Respiratory Rate 18 16 Blood Pressure 120/77 121/77 Pulse Oximetry 97 96 Oxygen Delivery Method Room Air Room Air BMI result Body Mass Index 33.1 Const General: cooperative, healthy appearing, comfortable, no acute distress, well developed, alert, awake and Physically active Orientation/consciousness: oriented to person, oriented to place, oriented to time and patient oriented x3 HENMT Head: Yes normal to inspection, Yes No palpable skull fracture present, Yes normocephalic and Yes atraumatic Ears: hearing grossly normal bilaterally, external ears normal, TM's normal bilaterally, TM normal on the right, TM normal on the left, EAC's normal, mastoids normal and no periauricular adenopathy Throat: Yes posterior oropharynx normal, Yes tonsils normal and Yes uvula midline Eyes General: appearance normal, both eyes and all related structures Neck Neck: Yes normal visual inspection, Yes full ROM, Yes no lymphadenopathy, Yes no meningeal signs, Yes trachea midline, Yes supple, No anterior neck swelling and No tender Chest Chest palpation & inspection: normal inspection of the chest and normal palpation of entire chest wall Resp Effort & Inspection: normal respiratory effort and able to speak in complete sentences Auscultation: clear to auscultation bilaterally Cardio Jugular venous distension: no JVD Heart sounds: S1 normal heart sound present and S2 normal heart sound present GI Inspection: Yes normal to inspection Palpation (GI): Soft to palpation, not firm, nontender, no guarding and not rigid General: No CVA tenderness and Yes no CVA tenderness Back/Spine/Pelvis Back: no CVA tenderness, No CVA tenderness and No back tenderness Skin General skin exam: no rashes or lesions noted, elasticity normal and turgor normal Neuro General: oriented to person, oriented to place, oriented to time, patient oriented x3, gait normal, tone normal, moves all extremities, Normal light touch and pain sensation, no meningeal signs, no focal motor deficits, CN's II-XI intact bilaterally and normal sensation to monofilament Extrem General: Yes normal to inspection, Yes full ROM and Yes capillary refill normal Psych Appearance: grossly normal, well kempt and not disheveled Course Course Course Narrative: RME: 28 yold male presents to the ED for diarrhea, fever, cough, congestion, and headache. Patient states daughter was diagnosed with influenza. SARS and strep ordered. Medications Administered Discontinued Medications Generic Name Dose Route Start Last Admin Trade Name Freq PRN Reason Stop Dose Admin Ibuprofen 800 mg 10/17/23 18:41 10/17/23 18:44 Ibuprofen 800 Mg Tablet PO 10/17/23 18:42 800 mg ONCE ONE Administration Medical Decision Making Medical Decision Making [facility] Narrative: 28 yold male presents to the ED for coughing diarrhea for 1 week. Patient positive for flu. Patient well-appearing. Lungs are clear. No further management needed. Patient explaind worrisome signs and informed to return to the ED if he has them. Differential Diagnosis Differential Diagnoses: The differential diagnosis associated with the presentation includes (COvid, RSV, influenza) Admission/Observation Consideration of admission/observation: Escalation of care including admission/observation considered Lab Data [facility] Lab Attestation statement: I reviewed the patient's lab results. Labs: Lab Results 10/17/23 Range/Units 18:53 Influenza Type A (PCR) NEGATIVE (Negative) Influenza Type B (PCR) POSITIVE A (Negative) RSV RNA Qual (PCR) NEGATIVE (Negative) SARS-CoV-2 RNA (RT-PCR) NEGATIVE (Negative) S. pyogenes GrpA YNES Negative (Negative) Independent Historian Clinical information obtained from an independent historian. History obtained from or confirmed by: Other (patient) External Record Review External record reviewed: Other (prior visits) Prescription Management I considered prescription management with: Pain Medication Discharge Plan Discharge Clinical Impression: Influenza A Patient Disposition: Home, Self-Care Instructions: Influenza (ED) Additional Instructions: Recommend follow-up with primary care provider. Return to the ED immediatelty for any chest pain, shortness of breath, headache, nausea, vomitting, fever, flank pain, or any othe concerning symptoms. REcommend BRAT diet ( bread, rice, applesauce, toast) Stand Alone Forms: Work/School Release Interventions: ED Discharge Assessment Last Done: 10/17/23 21:04 Discharge Date/Time: 10/17/23 21:04 Print Language: Lao
[2023-10-17] MEDS: Ibuprofen 800 MG TABLET PO (18:44)
[2023-10-17 19:06] LABS: IDNOW Serial# 08D9AD1C; Strep A Nucleic Acid Negative (Negative)
[2023-10-17 19:41] LABS: Influenza A PCR NEGATIVE (Negative); Influenza B PCR POSITIVE (Negative); Resp Syncy Virus RNA Qual PCR NEGATIVE (Negative); SARS COV2 PCR INHOUSE NEGATIVE (Negative)
[2023-10-17 20:13] VITALS: BP 121/77; PULSE 80; RESP 16; TEMP 37; O2SAT 96
== END 2023-10-17 21:04 | disposition home or self-care (01) ==
PROVIDERS: Physician Assistant; Emergency Provider Emergency Medicine
DX: J10.1 Influenza due to other identified influenza virus with other respiratory manifestations (principal); R50.9 Fever, unspecified; R05.9 Cough, unspecified; R19.7 Diarrhea, unspecified; Z11.52 Encounter for screening for COVID-19; Z20.822 Contact with and (suspected) exposure to COVID-19
CPT/HCPCS: 0241U; 87651; 99283; 99284

== ENCOUNTER 2025-07-10 06:07 | Emergency (ER) | payer OTHER, SELFPAY ==
--- NOTE | ~2025-07-10 | XR_ITS ---
EXAMINATION: XR LUMBOSACRAL SPINE CLINICAL INFORMATION: trauma COMPARISON: None available. TECHNIQUE: AP and lateral views FINDINGS: Mild levoconvex curvature of the lumbar spine which could be positional. Decreased intervertebral disc height at L5-S1. No acute cortical disruption or gross malalignment. No lytic or blastic lesions. XR/XR lumbar spine 2-3V IMPRESSION: No overt acute fracture or trauma-related listhesis. Mild spondylosis L5-S1. 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 Electronically signed by: Wilton Beckman MD 07/10/2025 08:09 AM [place]
[2025-07-10 06:09] VITALS: BP 120/86; PULSE 75; RESP 20; TEMP 35.9; O2SAT 98; BMI 33.9
[2025-07-10 06:30] VITALS: BP 134/80; PULSE 65; RESP 16; TEMP 36.9; O2SAT 100
--- NOTE | 2025-07-10 06:34 | ED_ITS ---
HPI - Back Pain/Injury General Chief Complaint: Back Pain/Injury Stated Complaint: back pain Time Seen by Provider: 07/10/25 06:17 Source: patient Limitations: no limitations History of Present Illness HPI Narrative: This is a 30 years old the patient with a history of chronic back pain x2 years presented to the emergency department complaining of lower back pain he was lifting yesterday today woke up with severe back pain. No radiation of the pain into the legs no incontinence urine or stools MD elicited complaint: back pain Pertinent past history: prior back pain Onset (ago): day(s) (1) Timing: constant Severity: moderate Quality: sharp Location: lumbar spine Radiation: none Exacerbating factors: none Relieving factors: none Associated symptoms: denies other symptoms Related Data Previous Rx's ?Medication ?Instructions ?Recorded cyclobenzaprine 10 mg tablet 10 mg PO TID PRN muscle s pasm #10 07/10/25 tabs ibuprofen 800 mg tablet 800 mg PO TID PRN pain #20 t abs 07/10/25 oxycodone 5 mg tablet 5 mg PO Q6H PRN pain #15 tab s 07/10/25 Allergies Allergy/AdvReac Type Severity Reaction Status Date / Time No Known Allergies (No Known Allergy Verified 07/10/25 06:10 Allergies*) Review of Systems 2 Review of Systems: Yes all other systems are reviewed and are negative PMFSH Past Medical History Medical History Elbow fracture Social History Social History Patient Tobacco Use Status: Never used Tobacco Smoked in Last 30 Days: No Use of substances other than those prescribed or required for medical reasons: No Advance Directives: No Advance Directives Information Provided: Yes Do you have a plan to hurt others: No Plan Current occupational status: employed 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 Physical Exam 2 Exam: Exam: No acute distress comfortable in the stretcher Vital Signs: Vital Signs: Last Vital Signs Temp 98.4 F 07/10/25 06:30 Pulse 65 07/10/25 06:30 Resp 16 07/10/25 06:30 BP 134/80 07/10/25 06:30 Pulse Ox 100 07/10/25 06:30 O2 Del Method Room Air 07/10/25 06:30 BMI result Body Mass Index 33.9 Vital signs stable Const: General: cooperative Nutritional Appearance: average body habitus Orientation/consciousness: patient oriented x3 Limitations: no limitations HEENT: Head: Yes normal to inspection General nose exam: Normal external nose present Face and sinus: Yes normal facial exam Mouth: Normal oral and palatal mucosa present Throat: Yes posterior oropharynx normal Neck: Neck: Yes normal visual inspection and Yes full ROM Chest: Chest palpation & inspection: normal inspection of the chest Resp: Effort & Inspection: normal respiratory effort Auscultation: clear to auscultation bilaterally Cardio: Jugular venous distension: no JVD Rate: regular rate Rhythm: r egular rhythm GI: Inspection: Yes normal to inspection Palpation (GI): Soft to palpation, not firm and nontender Skin: General skin exam: no rashes or lesions noted and elasticity normal L esions: no lesions Rashes: no rashes Neuro: Other: No deficits in strength no deficit in sensation reflexes tested by me knee 2+ ankle 1+ Babinski negative General: patient oriented x3 Cranial nerves: Yes CN's II-XII intact bilaterally Cognition (Neuro): normal cognition Motor exam (neuro): 5/5 motor strength present throughout Course Reevaluation(s) Reevaluation #1: On re-examination he is doing better, he is able to ambulate now we will go ahead and discharge the patient home patient is very comfortable with that the family as well Time: 09:43 Medications Administered Discontinued Medications Generic Name Dose Route Start Last Admin Trade Name Benq PRN Reason Stop Dose Admin Diazepam 5 mg 07/10/25 06:33 07/10/25 06:49 Diazepam 10 Mg/2 Ml Cartridge IVPUSH 07/10/25 06:34 5 mg STAT STA Administration Hydromorphone HCl 0.5 mg 07/10/25 07:24 07/10/25 07:37 Hydromorphone Hcl 0.5 Mg/0.5 Ml Syringe IVPUSH 07/10/25 07:25 0.5 mg ONCE ONE Administration Protocol Hydromorphone HCl 0.5 mg 07/10/25 08:06 07/10/25 08:31 Hydromorphone Hcl 0.5 Mg/0.5 Ml Syringe IVPUSH 07/10/25 08:07 0.5 mg ONCE ONE Administration Protocol Acetaminophen 1,000 mg in 100 mls @ 400 mls/hr 07/10/25 08:06 07/10/25 09:06 Ofirmev IV 07/10/25 08:20 Infused ONCE ONE Infusion Ketorolac Tromethamine 15 mg 07/10/25 06:33 07/10/25 06:49 Ketorolac Tromethamine 15 Mg/Ml Vial IVPUSH 07/10/25 06:34 15 mg ONCE ONE Administration Medical Decision Making Medical Decision Making [facility] Narrative: Patient is here with a exacerbation of lower back pain he has a normal neuro exam normal reflex no deficits in sensation or motor we will provide analgesia 09:52 is feeling much better he is able to ambulate without any problem right now, nruro exam is normal labs reassuring anticipate discharge Differential Diagnosis Differential Diagnoses: The differential diagnosis associated with the presentation includes Lower back pain/muscular strain Admission/Observation Consideration of admission/observation: Escalation of care including admission/observation considered Lab Data [facility] Lab Attestation statement: I reviewed the patient's lab results. 07/10/25 06:44 07/10/25 07:45 Labs: Lab Results 07/10/25 07/10/25 Range/Units 06:44 07:45 WBC 6.3 (4.8-10.8) X10*3/uL RBC 5.64 (4.60-5.80) X10*6/uL Hgb 17.3 (14.0-18.0) g/dl Hct 50.3 (42.0-52.0) % MCV 89.2 (80.0-98.0) fL MCH 30.7 (27.0-33.0) pg MCHC 34.4 (31.0-36.0) g/dl RDW 12.5 (11.0-16.0) % Plt Count 212 (160-400) X10*3/uL MPV 10.9 (9.4-12.4) fL Immature Gran % (Auto) 0.5 H (0.0-0.4) % Neut % (Auto) 57.4 (45-73) % Lymph % (Auto) 34.7 (20-40) % [place] % (Auto) 6.5 (2-11) % Eos % (Auto) 0.6 (0-4) % Baso % (Auto) 0.3 (0-2) % Lymph # (Auto) 2.2 (1.2-4.9) X10*3/uL [place] # (Auto) 0.4 (0.1-1.2) X10*3/uL Eos # (Auto) 0.0 (0.0-0.4) X10*3/uL Baso # (Auto) 0.0 (0.0-0.2) X10*3/uL Abs Immat Gran (auto) 0.03 (0.00-0.03) X10*3/uL Absolute Neuts (auto) 3.6 (2.0-8.3) x10*3/uL Absolute Nucleated RBC 0.000 (0.0-0.012) X10*3/uL Nucleated RBC % (auto) 0.0 (0.0-0.2) /100WBC ESR 2 (0-15) MM/HR Sodium 139 (135-145) mmol/L Potassium 4.0 (3.3-5.1) mmol/L Chloride 111 H (96-108) mmol/L Carbon Dioxide 19 L (22-29) mmol/L Anion Gap 13 (12-20) BUN 25 H (9-16) mg/dL Creatinine 0.85 (0.5-1.4) mg/dL Estim Creat Clear Calc 137.2 Estimated GFR > 60 Fasting Glucose 94 (60-99) mg/dL Calcium 8.8 (8.4-10.2) mg/dL Total Bilirubin 0.7 (0.0-1.0) mg/dL AST 23 (5-37) U/L ALT 19 (0-40) U/L Alkaline Phosphatase 62 (39-117) U/L Total Protein 7.2 (6.5-8.0) g/dL Albumin 4.5 (3.5-5.0) g/dL Independent Interpretation I performed an independent interpretation of an: Plain X-Ray Interpretation: no fx Radiology Impression Discussion of test interpretation with radiology: I have reviewed the radiologist's reading. Independent Historian brother Prescription Management I considered prescription management with: Pain Medication Discharge Plan Discharge Clinical Impression: Back pain Qualifiers: Back pain location: low back pain Chronicity: acute Back pain laterality: m idline Sciatica presence: without sciatica Qualified Code(s): M54.50 - Low back pain, unspecified Patient Disposition: Home, Self-Care Instructions: Acute Low Back Pain (ED) Prescriptions: New ibuprofen 800 mg tablet 800 mg PO TID PRN (Reason: pain) Qty: 20 0RF oxycodone 5 mg tablet 5 mg PO Q6H PRN (Reason: pain) Qty: 15 0RF Rx Instructions: partial filing upon pt request; Partial Fill upon patient request. cyclobenzaprine 10 mg tablet 10 mg PO TID PRN (Reason: muscle spasm) Qty: 10 0RF Referrals: Chaka Herrera MD, PhD [Physician, Neuro Spine] - 07/14/25 Stand Alone Forms: Work/School Release Print Language: Armenian
--- OUTSIDE RECORDS SUMMARY | 2025-07-10 06:42 | XMS_ITS | Encounter Summary ---
Author Organization [facility] Address [address] [place] [address] Phone Care Team Providers Care Intermediate Frame Tender Name Role Phone Rod Silvestre MD Primary Care Provider [phone] Encounter Details Date Type Department Care Team (Late st Contact Info) Description 12/03/2009 Documentation EM Family Medicine [address] [place] [address] Family Medicine, Physician [address] [place], [place] [id number] Social History Tobacco Use Types Packs/Day Years Used Date Smoking Tobacco: Never Assessed Sex and Gender Information Value Date Recorded Sex Assigned at Not on file Legal Sex Male 4:30 PM EDT Gender Identity Not on file Sexual Orientation Not on file documented as of this encounter Plan of Treatment Not on file documented as of this encounter Visit Diagnoses Not on filedocumented in this encounter Care Teams Intermediate Frame Tender Relationship Specialty Start Date End Date Rod Silvestre MD [address] [place] [address] [place] [id number] PCP - General 03/17/17 11/17/22 documented as of this encounter
--- OUTSIDE RECORDS SUMMARY | 2025-07-10 06:42 | XMS_ITS | Clinical Summary ---
Author Organization [facility] Address [address] [place] [id number] Phone Care Team Providers Care Inserting Machine Operator Name Role Phone Unavailable Primary Care Provider Unavailabl e Immunizations Immunization Administration Dates Next Due DTP 12/12/2000, 7,02/26/1996, 996,1995 Hep B, ped/adol 02/26/1996,1995,1995 Hib (PRP-T) 11/08/1996,199 6,1995, 996 IPV 12/12/2000,199 6,1995, 996 MMR 12/07/1999,07/15/1996 Meningococcal Conj (Menactra) MCV4P 01/29/2008 Tdap 01/29/2008 Varicella 01/29/2008,12/07/1999 Family History Relation Name Status Comments Brother Alive Brother: Alive and well, Asthma Father Alive Father: Alive a nd well Maternal Grandfather Materna l grandfather: Diabetes mellitus, Hypertension Maternal Grandmother Materna l grandmother: Hyperlipidemia, Glaucoma, Hypertension Mother Alive Mother: Alive a nd well Paternal Grandfather Alive Paterna l grandfather: Alive and well Paternal Grandmother Alive Paterna l grandmother: Alive and well Social History Tobacco Use Types Packs/Day Years Used Date Smoking Tobacco: Never Assessed Sex and Gender Information Value Date Recorded Sex Assigned at Not on file Legal Sex Male 4:30 PM EDT Gender Identity Not on file Sexual Orientation Not on file Plan of Treatment Health Maintenance Due Date Last Done Comments DTaP,Tdap,and Td Vaccines (7 - Td or Tdap) 01/28/2018 01/29/2008, 12/12/2000, 11/08/1996, Additional history exists HPV Vaccines (1 - 3-dose SCDM series) 2022 Influenza Vaccines (#1) 2025 COVID-19 Vaccine (2024- season) 2025 Hepatitis B Vaccines Completed 02/26/1996, 1995, 1995 HIB Vaccines Completed 11/08/1996, 02/05, 1995, Additional history exists MMR Vaccines Completed 12/07/1999, 07/15/1996 IPV Vaccines Completed 12/12/2000, 02/05, 1995, Additional history exists Meningococcal Vaccine Aged Out 01/29/2008 No yadi nasir eligible based on patient's age to complete this topic Varicella Vaccines Completed 01/29/2008, 12/07/1999 Hepatitis A Vaccines Aged Out No long er eligible based on patient's age to complete this topic Men B Vaccine Aged Out No longer elig ible based on patient's age to complete this topic Pneumococcal Vaccine Aged Out No long er eligible based on patient's age to complete this topic
--- OUTSIDE RECORDS SUMMARY | 2025-07-10 06:42 | XMS_ITS | Encounter Summary ---
Author Organization [facility] Address [address] [place] [address] Phone Care Team Providers Care Gum Dipper Name Role Phone Rod Silvestre MD Primary Care Provider [phone] Encounter Details Date Type Department Care Team (Late st Contact Info) Description 03/23/2017 Conversion Encounter [facility] [place] [address] [place] [address] Social History Tobacco Use Types Packs/Day Years [...] on filedocumented in this encounter Care Teams Gum Dipper Relationship Specialty Start Date End Date Rod Silvestre MD [address] [place] [address] PCP - General 03/17/17 11/17/22 documented as of this encounter
--- OUTSIDE RECORDS SUMMARY | 2025-07-10 06:42 | XMS_ITS | Clinical Summary ---
Author Organization [facility] Address [address] [address] Phone Care Team Providers Care Product Development Technician Name Role Phone Unknown, Unknown Primary Care Provider Pako gomez Allergies No known active allergies Medications No known medications Social History Tobacco Use Types Packs/Day Years Used Date Smoking Tobacco: Never Assessed Education Answer Date Recorded Are you interested in more education? Not on lopez e 12/03/2022 Are you concerned about learning? Not on file 12/03/2022 No 12/03/2022 No 12/03/2022 Digital Access Answer Date Recorded No 01/01/2023 No 01/01/2023 No 01/01/2023 Reliable internet access at home? Not on file 01/01/2023 Device with a working camera? Not on file Sex and Gender Information Value Date Recorded Sex Assigned at Not on file Legal Sex Male 3:00 PM EST Gender Identity Not on file Sexual Orientation Not on file Last Filed Vital Signs Vital Sign Reading Time Taken Comments Blood Pressure 112/80 09/15/2021 10:20 AM EST Pulse 68 09/15/2021 10:20 AM EST Temperature 36.4 C (97.6 F) 09/15/2021 10:20 AM EST Respiratory Rate 16 09/15/2021 10:20 AM EST Oxygen Saturation 97% 09/15/2021 10:20 AM EST Inhaled Oxygen Concentration - - Weight 94.3 kg (208 lb) 09/15/2021 10:20 AM EST Height 167.6 cm (5' 6 ) 09/15/2021 10:20 AM EST Body Mass Index 33.57 09/15/2021 10:20 AM EST Plan of Treatment Health Maintenance Due Date Last Done Comments DEPRESSION SCREENING 2007 SMOKING Hx and SMOKELESS TOBACCO SCREENING 2008 HEPATITIS C SCREENING 2013 HIV ONE-TIME SCREENING (18-65 YEARS) 2013 Adult Td,Tdap Booster 01/28/2018 01/29/2008 INFLUENZA VACCINE (#1) 2025 COVID-19 VACCINE (2024- season) 2025 HIB VACCINES Completed 11/08/1996, 02/05, 1995, Additional history exists MENINGOCOCCAL VACCINES (ACWY) Aged Out 01/29/2008 No longer eligible based on patient's age to complete this topic HEPATITIS A VACCINES Aged Out No long er eligible based on patient's age to complete this topic MENINGOCOCCAL VACCINES (B) Aged Out N o longer eligible based on patient's age to complete this topic PNEUMOCOCCAL VACCINES (0-49 years) Aged Out No longer eligible based on patient's age to complete this topic Medical Devices Not on file Insurance C3 ACO C3 ACO C3 ACO C3 ACO C3 ACO C3 ACO C3 ACO C3 ACO C3 ACO Care Teams Product Development Technician Relationship Specialty Start Date End Date Unknown, Unknown, PCP - General 09/02/21 Additional Source Comments The information contained in this document represents components of the legal health record. It is not the complete legal health record.[facility]
[2025-07-10] MEDS: diazePAM 10 MG/2 ML CARTRIDGE 5 MG IVPUSH (06:49)
[2025-07-10 06:50] LABS: MANUAL DIFF FLAG NO
[2025-07-10 06:58] LABS: Hematocrit 50.3 % (42.0-52.0); Hemoglobin 17.3 g/dl (14.0-18.0); Imm Gran Abs Auto 0.03 X10*3/uL (0.00-0.03); Imm Gran Pct Auto 0.5 % (0.0-0.4); Lymphocytes Absolute Auto 2.2 X10*3/uL (1.2-4.9); Mean Corpuscular HGB Conc 34.4 g/dl (31.0-36.0); Mean Corpuscular Hemoglobin 30.7 pg (27.0-33.0); Mean Corpuscular Volume 89.2 fL (80.0-98.0); NRBC Abs Auto 0.000 X10*3/uL (0.0-0.012); NRBC Pct Auto 0.0 /100WBC (0.0-0.2); Platelet Count 212 X10*3/uL (160-400); Red Blood Count 5.64 X10*6/uL (4.60-5.80); White Blood Count 6.3 X10*3/uL (4.8-10.8)
[2025-07-10 08:09] LABS: Erythrocyte Sedimentation Rate 2 MM/HR (0-15)
[2025-07-10 08:12] LABS: Alanine Aminotransferase 19 U/L (0-40); Albumin Level 4.5 g/dL (3.5-5.0); Alkaline Phosphatase 62 U/L (39-117); Anion Gap 13 (12-20); Aspartate Amino Transferase 23 U/L (5-37); Blood Urea Nitrogen 25 mg/dL (9-16); Calcium 8.8 mg/dL (8.4-10.2); Carbon Dioxide 19 mmol/L (22-29); Chloride 111 mmol/L (96-108); Creatinine Clr Calc Pharmacy 137.2; Estimated Glomerular Filt Rate > 60; Potassium 4.0 mmol/L (3.3-5.1); Sodium 139 mmol/L (135-145); Total Protein 7.2 g/dL (6.5-8.0)
[2025-07-10 09:53] VITALS: BP 119/75; PULSE 84; RESP 16; TEMP 36.6; O2SAT 98
[2025-07-10 10:05] VITALS: BP 119/75; PULSE 84; RESP 16; TEMP 36.6; O2SAT 98
== END 2025-07-10 10:05 | disposition home or self-care (01) ==
PROVIDERS: Emergency Provider Emergency Medicine
DX: M54.50 Low back pain, unspecified (principal); G89.29 Other chronic pain; Z79.899 Other long term (current) drug therapy
CPT/HCPCS: 36415; 72100; 80053; 85025; 85652; 96365; 96375; 96376; 99284; J0131; J1171; J1885; J3360

== ENCOUNTER → 2025-07-10 07:24 | Outpatient (BNV) | payer OTHER, SELFPAY | PROVIDERS: Emergency Provider Emergency Medicine; Visit Provider Radiology Diagnostic Radiology | DX: M47.816 Spondylosis without myelopathy or radiculopathy, lumbar region (principal) | CPT/HCPCS: 72100 ==